=== PATIENT | female | born 1990 | race Caucasian/White ===

== ENCOUNTER 2024-11-17 11:07 | Outpatient (CLI) | payer OTHER, SELFPAY ==
--- NOTE | 2024-11-18 09:59 | P.TNLD_ITS ---
Visit Information Visit Information Date of evaluation: 11/17/24 On-call OB Provider: Demetria Toney Reason for Evaluation: Yes rule out labor Vital Signs Vital Signs: Blood pressure 118/85, pulse 100, temperature 36.3? PFSH Social History Smoking Status: Never smoker Review of Systems Review of Systems Narrative: Patient with contractions, no leakage of fluid, no vaginal bleeding, good movement. No abdominal pain. Evaluation Evaluation Baseline heart rate: 140 Variability: Moderate (11-25) monitor accelerations: Present Monitor Decelerations: Absent Uterine Contraction Intensity: Mild Category of Tracing: Reactive Status: Category l Cervical dilation (cm): 1 Cervical effacement (%): 50 station: -4 Diagnosis, Plan/Disposition Final Diagnosis (1) False labor after 37 completed weeks of gestation: Status: Acute (2) 39 weeks gestation of : Status: Acute (3) History of section complicating : Status: Acute Plan/Disposition Plan: Patient not in active labor. Patient advise that we do not do TOLACs at this [facility] and if she comes in in labor we would do a section, we can not transport her in active labor to [place] so she was advised to consider getting housing near where she is planning to deliver. OB Disposition: home
== END 2024-11-17 12:04 | disposition home or self-care (01) ==
LOC: LABOR 11:13 → OB 11-19 09:17
PROVIDERS: Referring Provider Specialist; Visit Provider Specialist
DX: O47.1 False labor at or after 37 completed weeks of gestation (principal); O34.219 Maternal care for unspecified type scar from previous cesarean delivery; Z3A.39 39 weeks gestation of pregnancy
CPT/HCPCS: 59025; G0378; G0379

== ENCOUNTER 2024-11-18 22:25 | Inpatient (IN) | payer OTHER, SELFPAY ==
[2024-11-18] MEDS: LACTATED RINGERS 1,000 ML 100 ML IV (23:10)
[2024-11-18] MEDS: OXYTOCIN PREMIX 30 UNIT/500 ML PLAST..BAG 200 UNIT IV (23:10)
--- NOTE | 2024-11-18 23:24 | PM.OBHP.IH.1 ---
OB HPI Date/Time Date of admission: 11/18/24 Date Patient Seen: 11/18/24 Time Patient Seen: 22:45 History of Present Condition Chief complaint: labor Estimated Gestational Age (weeks): 39 : 2 Para: 1 Narrative: Patient comes in completely dilated. Patient had spontaneous rupture membranes several hours before arrival. Patient states she has been cristóbal for a few days. She was evaluated here 24 hours ago and was not dilated. Patient states she has been getting care in [place] because she was hoping to have a and has Sjogren's syndrome. We are still attempting to get her records. Patient has stage no complications during the . Preadmission Labs Last OB Lab Results: No Data to Display Prior (ies) Past Pregnancies Del. Date GA/Weeks Labor Lgth Wt Sex Route Outcome Anesthesia Place Delv Breastfeed Preg Comp Name Unknown Female Evaluation Evaluation Baseline heart rate: 120 Variability: Moderate (11-25) monitor accelerations: Present Monitor Decelerations: Variable Contraction Frequency (minutes): 3 Uterine Contraction Intensity: Strong/Firm Status: Category ll Dilation (cm): 10 Effacement (%): 100 station: +1 [facility] Social History Smoking Status: Never smoker Meds Home Medications and Allergies Home Medications Medication Instructions Recorded Confirmed Type No Known Home Medications 08/04/24 08/04/24 History Allergies Allergy/AdvReac Type Severity Reaction Status Date / Time Sulfa (Sulfonamide Allergy Intermediate rash Verified 08/04/24 17:44 Antibiotics) Review of Systems Review of Systems Narrative: Patient denies headaches, scotomata, epigastric pain. Regular painful contractions. No pain of her abdomen in between contractions. She had been noting good movement. No vaginal bleeding. Spontaneous rupture membranes with clear fluid. OB Exam Vital signs Blood Pressure: 128/66 Pulse Rate: 84 Temperature: 98.6 F Narrative Exam Narrative: HEENT exam within normal limits. Lungs are clear to auscultation and percussion. No thyromegaly. Heart is regular rate and rhythm no S3-S4 murmurs. Abdomen is gravid. Fetus is vertex. Extremities without edema and nontender. Assessment and Plan Assessment and Plan Assessment and Plan narrative: 2 para 1 EDC 11/20/2024 with prior section was hoping for at [facility] in [place] arrived on Labor and delivery in active labor completely dilated with rapid progression to delivery vaginally. Time-Based Coding :: [TOTAL MINUTES] spent with patient and on the chart (including review of chart, obtaining history, exam, reviewing outside data, placing orders, documenting exam and treatment plan, and counseling patient) on [DATE].
[2024-11-18 23:33] VITALS: BP 128/66; PULSE 84; TEMP 37
--- NOTE | 2024-11-18 23:34 | P.PCNOB_ITS ---
Labor & Delivery Delivery date: 11/18/24 Delivery Time: 23:05 Intrapartal Events: None Cervical ripening method: none Induction method: none Delivery monitor: external FHT and external uterine Route of delivery: L&D Laceration Description: Perineal - 1st Degree (No repair required) Estimated blood loss (mL): 150 Anesthesia Type: None Narrative: Patient is a 34-year-old EDC 11/20/2024 per patient report, records are not yet available, who arrived on Labor and delivery in active labor completely dilated. The heart tones baseline 120s with variable decelerations with pushing who progress rapidly to spontaneous vaginal delivery over an intact perineum. A loose nuchal cord was released after delivery of the head. The viable male was then delivered and placed on maternal abdomen. After the cord stopped pulsating the cord was clamped, cut, and cord bloods obtained. IV Pitocin was begun. The placenta delivered spontaneously, intact, with 3 vessels. There were no cervical or vaginal tears. A first-degree midline perineal tear did not require suturing. Estimated blood loss 150 cc. Both infant and mother doing well. [address] Baby 1: Infant gender: Male Presentation: vertex Position: Right Occiput Anterior Placenta delivery description: Spontaneous Cord Vessel Description: 3 Vessels and Nuchal Cord (Loose x1) score (1 min): 8 score (5 min): 9 Plan for aftercare: Routine care
[2024-11-18 23:56] LABS: Add Manual Diff / Slide Review NO; Basophils Absolute Auto 0 /uL (0-100); Basophils Percent Auto 0.2 % (0-2); Eosinophils Absolute Auto 0 /uL (0-450); Hematocrit 37.9 % (36-46); Hemoglobin 12.5 g/dL (12.0-16.0); Lymphocytes Absolute Auto 1000 /uL (1100-4500); Lymphocytes Percent Auto 5.3 % (25-40); Mean Corpuscular HGB Conc 33.1 % (30-36); Mean Corpuscular Hemoglobin 30.2 PG (26-34); Mean Corpuscular Volume 91.5 fL (80-100); Monocytes Absolute Auto 400 /uL (0-900); Monocytes Percent Auto 2.2 % (3-14); Neutrophils Absolute Auto 16700 /uL (1500-7000); Neutrophils Percent Auto 92.3 % (50-75); Platelet Count 360 X10^3/uL (150-400); Red Blood Cell Count 4.15 X10^6/uL (4.0-5.2); Red Cell Distribution Width 14.3 % (11.6-14.8); White Blood Cell Count 18.1 X10^3/uL (4.5-11.0)
[2024-11-19] MEDS: DERMOPLAST SPRAY 20% 60 ML 1 SPRAY TOP (02:21)
[2024-11-19] MEDS: WITCH HAZEL/GLYCERIN PADS 1 EACH TOP (02:21)
[2024-11-19] MEDS: IBUPROFEN 600 MG TABLET PO ×4 (02:21→23:35)
[2024-11-19] MEDS: ACETAMINOPHEN 325 MG TABLET 650 MG PO ×3 (07:48→20:41)
[2024-11-19] MEDS: LANOLIN OINT 7 GM 1 APPLIC TOP (07:48)
--- NOTE | 2024-11-19 09:08 | PM.OBHP.IH.1 ---
OB HPI Date/Time Date of admission: 11/18/24 Date Patient Seen: 11/18/24 Time Patient Seen: 22:45 History of Present Condition Chief complaint: labor Date of Last Menstrual Period: 02/14/24 Estimated Gestational Age (weeks): 39 : 2 Para: 1 care: good care, initiated at week # (8), number of visits (12) and pounds weight gain (29) Dating criteria OB: LMP confirmed by 1st trimester US Ultrasounds: normal mid trimester US Obstetrical complications: none Medical complications OB: none External History : 2 Para: 1 Narrative: 1st primary for intolerance of labor at 5 cm, induction labor for postdates, 11/2022 Preadmission Labs Last OB Lab Results: Blood Type A Positive 11/18/24 22:50 Antibody Screen Negative 11/18/24 22:50 Hct 37.9 % (36-46) 11/18/24 22:50 Hgb 12.5 g/dL (12.0-16.0) 11/18/24 22:50 Glucose Tolerance Testing: Fasting (69), 1 hr (103) and 2 hr (86) -: Chlamydia screen: negative and Gonorrhea screen: negative Genetic Screens: Cell-free DNA: Normal External Labs Blood type OB HPI: A (+) positive -: Antibody screen: negative, HIV: negative, RPR/VDLR: negative, Chlamydia screen: negative, Gonorrhea screen: negative and GBS status: negative -: Rubella: not immune HCAB: negative Prior (ies) Past Pregnancies Del. Date GA/Weeks Labor Lgth Wt Sex Route Outcome Anesthesia Place Delv Breastfeed Preg Comp Name Unknown Female Hx # Term Pregnancies: 1 Hx # Pregnancies: 0 Number of Living Children: 1 Multiple births: 0 Spontaneous abortions: 0 Ectopic pregnancies: 0 Elective abortions: 0 Evaluation Evaluation Baseline heart rate: 120 Variability: Moderate (11-25) monitor accelerations: Present Monitor Decelerations: Variable Contraction Frequency (minutes): 3 Uterine Contraction Intensity: Strong/Firm Status: Category ll Dilation (cm): 10 Effacement (%): 100 station: +1 PFSH Medical History (Updated 11/19/24 @ 09:20 by Demetria Toney MD) Teratoma of right ovary Surgical History (Updated 11/19/24 @ 09:20 by Demetria Toney MD) History of ankle surgery Social History Smoking Status: Never smoker Meds Home Medications and Allergies Home Medications Medication Instructions Recorded Confirmed Type No Known Home Medications 08/04/24 08/04/24 History Allergies Allergy/AdvReac Type Severity Reaction Status Date / Time oxycodone Allergy Intermediate Rash Verified 11/19/24 06:55 Sulfa (Sulfonamide Allergy Intermediate rash Verified 08/04/24 17:44 Antibiotics) Review of Systems Review of Systems Narrative: Patient comes in completely dilated. Patient had spontaneous rupture membranes several hours before arrival. Patient states she has been cristóbal for a few days. She was evaluated here 24 hours ago and was not dilated. Patient states she has been getting care in [place] because she was hoping to have a and has Sjogren's syndrome. Patient denies headaches, scotomata, epigastric pain. Regular painful contractions. No pain of her abdomen in between contractions. She had been noting good movement. No vaginal bleeding. Spontaneous rupture membranes with clear fluid. OB Exam Vital signs Blood Pressure: 128/66 Pulse Rate: 84 Temperature: 98.6 F Narrative Exam Narrative: HEENT exam within normal limits. No thyromegaly. Lungs are clear to auscultation percussion. Heart is regular rate and rhythm no S3-S4 murmurs. Abdomen is gravid with fetus vertex. Extremities without edema and nontender Objective Labs 11/18/24 22:50 Labs: Laboratory Results - last 24 hr 11/18/24 22:50 WBC 18.1 H RBC 4.15 Hgb 12.5 Hct 37.9 MCV 91.5 MCH 30.2 MCHC 33.1 RDW 14.3 Plt Count 360 Neut % (Auto) 92.3 H Lymph % (Auto) 5.3 L [place] % (Auto) 2.2 L Eos % (Auto) 0.0 L Baso % (Auto) 0.2 Neut # (Auto) 22205 H Lymph # (Auto) 1000 L [place] # (Auto) 400 Eos # (Auto) 0 Baso # (Auto) 0 Blood Type A Positive Antibody Screen Negative Assessment and Plan Assessment and Plan Assessment and Plan narrative: Patient with prior section who was planning in [place] arrived on Labor and delivery in active labor completely dilated. Anticipate vaginal delivery. Time-Based Coding :: [TOTAL MINUTES] spent with patient and on the chart (including review of chart, obtaining history, exam, reviewing outside data, placing orders, documenting exam and treatment plan, and counseling patient) on [DATE].
[2024-11-19 09:32] VITALS: BP 128/66; PULSE 84; TEMP 37
--- NOTE | 2024-11-19 15:35 | PM.OBPN.1 ---
Subjective - OB Subjective Patient comments: no complaints [place] baby status: doing well and nursing well [place] feeding status: exclusively breast feeding Date Patient Seen: 11/19/24 Time Patient Seen: 15:36 Interval history: Patient day 1 doing very well. No pain. No significant bleeding. No headaches. Exam Vital Signs (past 8 hours): - Blood pressure 124/71, pulse of 89, temperature 98.9? 11/19/24 09:32 Temperature 98.6 F Pulse Rate 84 Blood Pressure 128/66 Narrative Exam Narrative: Abdomen is soft, nontender. Uterus is firm, at U, nontender. Mild lochia. Perineum intact. Extremities without edema and nontender Objective Labs 11/18/24 22:50 Labs: Laboratory Results - last 24 hr 11/18/24 22:50 WBC 18.1 H RBC 4.15 Hgb 12.5 Hct 37.9 MCV 91.5 MCH 30.2 MCHC 33.1 RDW 14.3 Plt Count 360 Neut % (Auto) 92.3 H Lymph % (Auto) 5.3 L [place] % (Auto) 2.2 L Eos % (Auto) 0.0 L Baso % (Auto) 0.2 Neut # (Auto) 23703 H Lymph # (Auto) 1000 L [place] # (Auto) 400 Eos # (Auto) 0 Baso # (Auto) 0 Blood Type A Positive Antibody Screen Negative Assessment & Plan Plan day: 0 plan OB: routine care Time-Based Coding :: [TOTAL MINUTES] spent with patient and on the chart (including review of chart, obtaining history, exam, reviewing outside data, placing orders, documenting exam and treatment plan, and counseling patient) on [DATE].
[2024-11-20] MEDS: ACETAMINOPHEN 325 MG TABLET 650 MG PO ×2 (03:36→09:34)
[2024-11-20] MEDS: IBUPROFEN 600 MG TABLET PO ×2 (05:41→11:49)
--- NOTE | 2024-11-20 07:50 | PM.OBDS.1 ---
Discharge Providers Provider Date of admission: 11/18/24 22:25 Discharge Date: 11/20/24 Primary care physician: Doctor Amado MD Consults: 11/18/24 23:18 Consult to Anesthesiology Urgent Comment: Consulting Provider: Anesthesiologist Reason for consultation: Epidural 11/19/24 23:21 Consult to Onion Farmer Routine Comment: Discharge provider: Demetria Toney MD Summary Hospital Course Date Patient Seen: 11/20/24 Time Patient Seen: 07:50 Diagnoses: 39 week gestation, prior section, spontaneous vaginal delivery Hospital Course: Patient is a 34-year-old 2 para 1 who had planned to have a TOLAC in [place] but arrived on Labor and delivery in active labor completely dilated. The patient had a spontaneous vaginal delivery. Patient is urinating and ambulating well. Breast-feeding without difficulty. Pain well controlled. Peripartum Data Infant Delivery Method: Natural Vaginal Laceration Description: None complications: none [place] 1: Gender: Male Disposition of : home Discharge Diagnosis (1) Normal spontaneous vaginal delivery: Status: Acute Status at Discharge Cognitive/behavioral status at discharge: oriented Functional status at discharge: independent ambulation Overall status at discharge: patient is progressing back to baseline Time Spent with Patient Time attestation: Total time spent providing and/or coordinating discharge services: Time spent: Less than 30 minutes Objective Labs 11/18/24 22:50 Exam Vital Signs (past 8 hours): Blood pressure 122/76, pulse 68, temperature 98.6? Narrative Exam Narrative: Abdomen is soft, nontender. Uterus is firm, at U, nontender. Mild lochia. Perineum intact. Extremities without edema and nontender. Discharge Plan Discharge Plan Patient Disposition: Home Discharge orders & Medications Prescriptions: No Action No Known Home Medications Follow up/Referrals: Mei Patricia MD [Physician] - 01/04/25 10:30 am (Please follow-up with Dr. Patricia for your 6 week appointment on Saturday January 04, 2025 at 10:30 am. Please arrive at 10:15 am!) Doctor Fischer MD [Primary Care Provider] - Diet/Activity/Treatments Diet: Regular Activity: Nothing in vagina for 6 weeks Skin/Wound/Dressing Care Report to your healthcare provider any signs of infection, such as:: chills, fever, night sweats and increased pain Visit Report/Discharge Packet Stand Alone Forms: Patient Portal/API, Stroke Signs & Symptoms Discharge Data Primary Care Provider: Miscellaneous,Doctor
[2024-11-20] MEDS: PRENATAL VIT,CALC/IRON/FOLIC 1 TABLET 1 TAB PO (09:34)
[2024-11-20] MEDS: DOCUSATE 100 MG CAPSULE PO (10:04)
[2024-11-20 13:49] VITALS: BP 123/77; PULSE 85; RESP 14; TEMP 37.2
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
== END 2024-11-20 16:50 | disposition home or self-care (01) | DRG 560 ==
PROVIDERS: Admitting Provider Specialist; Referring Provider Specialist; Visit Provider Specialist
DX: O42.02 Full-term premature rupture of membranes, onset of labor within 24 hours of rupture (principal); O99.12 Other diseases of the blood and blood-forming organs and certain disorders involving the immune mechanism complicating childbirth; Z3A.39 39 weeks gestation of pregnancy; Z37.0 Single live birth; M35.00 Sjogren syndrome, unspecified; O47.1 False labor at or after 37 completed weeks of gestation; O34.219 Maternal care for unspecified type scar from previous cesarean delivery
CPT/HCPCS: 36415; 59025; 59050; 59409; 85025; 86850; 86900; 86901; 99222; 99238; G0379; J2590